=== PATIENT | female | born 1950 | race Caucasian/White ===

== ENCOUNTER 2021-10-20 15:18 | Outpatient (CLI) | payer MEDICARE, BC | END 2021-10-20 15:19 | disposition home or self-care (01) | LOC: CSHMRI 15:18 | PROVIDERS: ATTEND Specialist | DX: M51.24 Other intervertebral disc displacement, thoracic region (principal) | CPT/HCPCS: 72146 ==

== ENCOUNTER 2023-08-06 10:11 | Outpatient (CLI) | payer MEDICARE | END 2023-08-06 10:12 | disposition home or self-care (01) | LOC: CSHCT 10:11 | PROVIDERS: ATTEND Urology | DX: R10.31 Right lower quadrant pain (principal); R19.5 Other fecal abnormalities | CPT/HCPCS: 74178; 82565 ==

== ENCOUNTER 2024-05-27 15:57 | Outpatient (CLI) | payer MEDICARE | END 2024-05-27 15:58 | disposition home or self-care (01) | LOC: CSHMRI 15:57 | PROVIDERS: ATTEND Specialist | DX: M51.16 Intervertebral disc disorders with radiculopathy, lumbar region (principal); M47.26 Other spondylosis with radiculopathy, lumbar region | CPT/HCPCS: 72148 ==